=== PATIENT | male | born 1990 | race Caucasian/White ===

== ENCOUNTER 2025-04-03 10:50 | Outpatient (AMB) | payer BC, SELFPAY ==
--- NOTE | 2025-04-03 10:55 | A.OFFVIS_ITS ---
Vital Signs 04/03/25 11:00 Height 5 ft 9 in Weight 160 lb BMI 23.6 Intake Visit Reasons: FC - Right Distal Bicep Tear 03/28/25 Intake Note: Wu is a 34 year old right hand dominant male who presents today as a new patient for an evaluation of right distal bicep tear, DOI 03/28/25. Patient reports possible injury while doing yard work moving concrete blocks. States no traumatic injury and he did not have immediate pain. He has a visual deformity of the distal bicep and is feeling significantly weak. States that he is unable to make a fully closed fist. Complaints numbness and tingling in hand at night. He describes is pain as more of a soreness in his arm. Hx of fracture of right clavicle fracture at age 13. Allergies Penicillins (PENICILLINS) Allergy (Intermediate, Verified 04/03/25 11:14) HIVES amoxicillin (AMOXICILLIN) Allergy (Mild, Verified 04/03/25 11:14) HIVES Medication List - Last Reconciled 04/03/25 by Lorna Howard PA-C No Known Home Meds HPI HPI FC - Right Distal Bicep Tear 03/28/25: Details: 34-year-old gentleman presents to the office today for concerns to his right shoulder. He denies specific injury. 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 No history of recent ecchymosis or swelling of the right upper extremity. Denies any loss of strength. Denies loss of range of motion. [facility] Surgical History (Updated 04/03/25 @ 10:59 by HUEY Pastor) History of nasal surgery Social History (Updated 04/03/25 @ 11:00 by HUEY Pastor) Patient Tobacco Use Status: Current everyday Tobacco user Current occupational status: employed Current occupation: tree work, right hand dominant Review of Systems Const All systems reviewed & are unremarkable except as noted in HPI and below Physical Exam Vital Signs: BMI result Body Mass Index 23.6 Const General: cooperative and no acute distress Orientation/consciousness: patient oriented x3 Resp Effort & Inspection: normal respiratory effort and able to speak in complete sentences Cardio Peripheral pulses: Peripheral pulses 2+ throughout Neuro General: patient oriented x3 Extrem Other: Right shoulder normal to inspection he does have slight muscle deformity along the proximal biceps with flexion and mild tenderness. No ecchymosis or swelling. Distal biceps tendon is intact. He can supinate and pronate without pain. Neurovascularly intact. Assessment & Plan Assessment & Plan (1) Rupture of proximal biceps tendon: Code(s): S46.119A - Strain of muscle, fascia and tendon of long head of biceps, unspecified arm, initial encounter Category: Medical Plan: Feel as though this may be an acute on chronic injury. Patient has no functional deficits related to this injury. I explained that this is a nonsurgical injury given the chronicity of the likely injury but also if he does have a full tear it often retracts and there is no way to reattached. He can continue with normal activities without limitations. If there is any concerns going forward in contact our office otherwise follow up as needed. Coding Level of Care Code New Pt Level 3 (68801) Complex EM visit Add On G2211 Diagnoses Rupture of proximal biceps tendon S46.119A
[2025-04-03 11:00] VITALS: BMI 23.6
--- OUTSIDE RECORDS SUMMARY | 2025-04-03 12:42 | XMS_ITS | Clinical Summary ---
Author Organization [facility] Address [address] [facility] [place] [address] Care Team Providers Care Shrub Planter Name Role Phone None Primary Care Provider Unavailabl e Allergies Active Allergy Reactions Criticality Noted Date Comments Amoxicillin Hives 10/19/2024 Penicillins Anaphylaxis High 10/19/2024 Medications methylphenidate (CONCERTA) 36 mg CR tablet 36mg, PO, QAM 10/31/2001 Active cephALEXin (Keflex) 500 mg capsule Take 1 capsule by mouth 4 times daily. 28 capsule 10/19/2024 Active Social History Tobacco Use Types Packs/Day Years Used Date Smoking Tobacco: Every Day Cigarettes 1 22.8 Started: 2002 Smokeless Tobacco: Never Tobacco Cessation:Ready to Q uit: Not Asked; Counseling Given: Not Answered IPV Inpatient Questions Answer Date Recorded Does Anyone Try to Keep You From Having Contact with Others or Doing Things Outside Your Home? no 10/19/2024 Feels Threatened by Someone no 10/01 Feels Unsafe at Home or Work/School no 10/19/2024 Physical Signs of Abuse Present no 10/19/2024 Sex and Gender Information Value Date Recorded Sex Assigned at Not on file Legal Sex Male 6:06 AM EST Gender Identity Not on file Sexual Orientation Not on file Last Filed Vital Signs Vital Sign Reading Time Taken Comments Blood Pressure 131/101 10/19/2024 1:49 PM EDT Pulse 91 10/19/2024 1:49 PM EDT Temperature 36.4 C (97.5 F) 10/19/2024 1:49 PM EDT Respiratory Rate 18 10/19/2024 1:49 PM EDT Oxygen Saturation 96% 10/19/2024 1:49 PM EDT Inhaled Oxygen Concentration - - Weight 74.8 kg (165 lb) 10/19/2024 1:49 PM EDT Height 175.3 cm (5' 9 ) 10/19/2024 1:49 PM EDT Body Mass Index 24.37 10/19/2024 1:49 PM EDT Plan of Treatment Health Maintenance Due Date Last Done Comments HIV screen 2007 Hepatitis C Screening 2007 Lipid Screening 2007 Hepatitis B vaccine (0-59 yrs) and Risk (1) 2008 Pneumococcal Vaccine: At-Risk 5-49yrs (1 of 2 - PCV) 1 Tetanus/Diphtheria/Pertussis Vaccines (1 - Tdap) 04/25 Covid-19 Vaccine (1 - season) 2025 Influenza (Flu) vaccine (1 o f 1 - Influenza standard series) 03/03/[address] [place] [address] [place] [address] OOS Member Subscriber Plan / Payer (Ef fective 2022-Present) Name:Wu Butler Relation to Subscriber:Self Name:Wu Butler Payer ID:Not on file Type:Not on file Address: [address] [id number] Care Teams Shrub Planter Relationship Specialty Start Date End Date None None PCP - General 07/12/24
--- OUTSIDE RECORDS SUMMARY | 2025-04-03 12:42 | XMS_ITS | Clinical Summary ---
Author Organization [facility] Address [address] [facility] [address] [place] [id number] Phone Care Team Providers Care Billing Supervisor Name Role Phone Pcp, Unknown Primary Care Provider Unavailabl e Allergies Active Allergy Reactions Criticality Noted Date Comments Amoxicillin 01/18/2021 Penicillins 01/18/2021 Medications albuterol 90 mcg/actuation inhaler Inhale 2 puffs into the lungs every 6 (six) hours as needed (cough, chest congestion). 1 Inhaler 1 Active Additional Information Patient not taking.Reported on 08/22/2024 benzonatate (TESSALON) 100 MG capsule Take 1 capsule (100 mg total) by mouth 3 (three) times a day as needed for cough. 20 capsule 1 Active Additional Information Patient not taking.Reported on 08/22/2024 Social History Tobacco Use Types Packs/Day Years Used Date Smoking Tobacco: Every Day Smokeless Tobacco: Never Alcohol Use Standard Drinks/Week Comments Never 0 (1 standard drink = 0.6 oz pur e alcohol) Education Answer Date Recorded Are you interested in more education? Not on christina e 10/28/2022 Are you concerned about learning? Not on file 10/28/2022 No 10/28/2022 No 10/28/2022 Digital Access Answer Date Recorded No 11/28/2022 No 11/28/2022 No 11/28/2022 Reliable internet access at home? Not on file 11/28/2022 Device with a working camera? Not on file Intimate Partner Violence Answer Date R ecorded Are you denied basic needs s uch as food, clothing, or medical care? No 08/22/2024 In the past 12 months have y ou been in a relationship with a person who hurts, threatens, or tries to control you? No 08/22/2024 Are you denied basic needs s uch as food, clothing, or medical care? No 08/22/2024 In the past 12 months have y ou been in a relationship with a person who hurts, threatens, or tries to control you? No 08/22/2024 Sex and Gender Information Value Date Recorded Sex Assigned at Not on file Legal Sex Male 9:05 PM EDT Gender Identity Not on file Sexual Orientation Not on file Last Filed Vital Signs Vital Sign Reading Time Taken Comments Blood Pressure 124/65 08/22/2024 6:02 PM EST Pulse 65 08/22/2024 6:02 PM EST Temperature 36.7 C (98 F) 08/22/2024 6:02 PM EST Respiratory Rate 16 08/22/2024 6:02 PM EST Oxygen Saturation 98% 08/22/2024 6:02 PM EST Inhaled Oxygen Concentration - - Weight 86.2 kg (190 lb) 01/18/2021 2:27 PM EDT Height 175.3 cm (5' 9 ) 01/18/2021 2:27 PM EDT Body Mass Index 28.06 01/18/2021 2:27 PM EDT Plan of Treatment Health Maintenance Due Date Last Done Comments Adult Td,Tdap Booster 1989 LIPID PANEL 1989 DEPRESSION SCREENING 2001 SMOKING Hx and SMOKELESS TOB ACCO SCREENING 2002 HEPATITIS C SCREENING 2007 HIV ONE-TIME SCREENING (18-6 5 YEARS) 2007 PNEUMOCOCCAL VACCINES (0-49 years) (1 of 2 - PCV) 2008 INFLUENZA VACCINE (#1) 2025 COVID-19 VACCINE ( - 2023-2 5 season) 2025 HEPATITIS A VACCINES Aged Out No long er eligible based on patient's age to complete this topic HIB VACCINES Aged Out No longer eligi ble based on patient's age to complete this topic MENINGOCOCCAL VACCINES (ACWY) Aged Out No longer eligible based on patient's age to complete this topic MENINGOCOCCAL VACCINES (B) Aged Out N o longer eligible based on patient's age to complete this topic Medical Devices Not on file Insurance BLUE CROSS OUT OF STATE PPO BLUE CROSS OUT OF STATE PPO BLUE CROSS OUT OF STATE PPO BLUE CROSS OUT OF STATE PPO BLUE CROSS OUT OF STATE PPO BLUE CROSS OUT OF STATE PPO BLUE CROSS OUT OF STATE PPO BLUE CROSS OUT OF STATE PPO BLUE CROSS OUT OF STATE PPO Care Teams Billing Supervisor Relationship Specialty Start Date End Date Pcp, Unknown PCP - General 08/22/24 Additional Source Comments The information contained in this document represents components of the legal health record. It is not the complete legal health record.[facility]
== END 2025-04-03 12:02 | disposition home or self-care (01) ==
LOC: HO.HOS 10:51
PROVIDERS: Visit Provider Physician Assistant
DX: S46.119A Strain of muscle, fascia and tendon of long head of biceps, unspecified arm, initial encounter (principal)
CPT/HCPCS: 99203; G2211